=== PATIENT | female | born 1955 | race Caucasian/White ===

== ENCOUNTER 2017-12-10 06:44 | Day surgery (SDC) | payer OTHER ==
[~2017-12-10] VITALS: Ht 152.4 cm; Wt 51.8 kg
[~2017-12-10 06:44] MED LIST: ALBU8.5H8 IH; AMIT10TA6 PO; CITA-106 PO; FAMO20 PO; LEVE500T8 PO; LORA10TA7 PO; MONT10TA21 PO; NIFE60TA71 PO; SUMA25TA9 PO; ZOLP10TA7 PO
[2017-12-10] MEDS ORDERED: LIDOCAINE HCL 4% 50 ML SOLUTION TP ONE (06:45)
[2017-12-10] MEDS ORDERED: LIDOCAINE HCL 2% 30 ML JELLY TP ONE (06:45)
[2017-12-10] MEDS ORDERED: BENZOCAINE 20% 50 MCG/SPRAY 57 GM TP ONE (06:45)
[2017-12-10] MEDS ORDERED: SODIUM CHLORIDE 0.9% 1,000 ML IV ONE ×2 (06:47→07:00)
[2017-12-10] MEDS ORDERED: CYAN250014 PO (07:08)
[2017-12-10] MEDS ORDERED: MOME13HF IH (07:08)
[2017-12-10] MEDS ORDERED: TOPI100T37 PO (07:08)
[2017-12-10] MEDS ORDERED: ASCO500 PO (07:08)
[2017-12-10] MEDS ORDERED: GABA600T PO (07:08)
[2017-12-10] MEDS ORDERED: THIA100T67 PO (07:08)
[2017-12-10] MEDS ORDERED: FentaNYL CITRATE-PF 100 MCG/2 ML VIAL ONE (08:07)
[2017-12-10] MEDS ORDERED: MIDAZOLAM HCL 2 MG/2 ML VIAL ONE (08:07)
[2017-12-10] MEDS ORDERED: MethylPREDNISolone SOD SUCC 125 MG/2 ML VIAL IVP ONE (08:45)
[2017-12-10] MEDS ORDERED: MethylPREDNISolone SOD SUCC 125 MG/2 ML VIAL ONE (08:56)
[2017-12-10] MEDS ORDERED: OXYGEN THERAPY IH SCH (20:00)
== END 2017-12-10 10:00 | disposition home or self-care (01) ==
LOC: SURGERY 06:44
PROVIDERS: ATTEND Internal Medicine Critical Care Medicine
DX: J38.4 Edema of larynx (principal); B37.0 Candidal stomatitis; J84.111 Idiopathic interstitial pneumonia, not otherwise specified; I10 Essential (primary) hypertension; G89.29 Other chronic pain; F41.8 Other specified anxiety disorders; E03.9 Hypothyroidism, unspecified; G43.909 Migraine, unspecified, not intractable, without status migrainosus; J44.9 Chronic obstructive pulmonary disease, unspecified; F32.9 Major depressive disorder, single episode, unspecified; Z90.710 Acquired absence of both cervix and uterus; Z90.89 Acquired absence of other organs; Z79.891 Long term (current) use of opiate analgesic; Z79.899 Other long term (current) drug therapy; Z98.890 Other specified postprocedural states; Z82.5 Family history of asthma and other chronic lower respiratory diseases; Z83.6 Family history of other diseases of the respiratory system; Z84.1 Family history of disorders of kidney and ureter; Z82.61 Family history of arthritis; Z84.89 Family history of other specified conditions; Z80.3 Family history of malignant neoplasm of breast; Z80.9 Family history of malignant neoplasm, unspecified; Z82.0 Family history of epilepsy and other diseases of the nervous system; Z83.52 Family history of ear disorders
CPT/HCPCS: 31623; 31624; 71045; 87015; 87070; 87205; 87206; 87220; 88108; 88312; J2250; J2930; J3010; J7030